=== PATIENT | female | born 1955 | race Hispanic/Latino ===

== ENCOUNTER → 2017-08-03 | Day surgery (SDC) | payer OTHER ==
[~2017-08-03] MED LIST: ALLERGY MEDICAT25 MG PO; ASPIR 8181 MG PO; CALCIUM ACETAT667 M1 PEG; ESTRADIOL1 MG PO; LIDOCAINE HCL 2% LOCAL INJ 5 ML SDV VIAL INJ ONE; MIDAZOLAM HCL 2 MG/2 ML VIAL ONE; NP THYROID60 MG PO; PRAVASTATIN SOD40 MG PO; PROPOFOL IV EMULSION 10 MG/ML 50 ML VIAL ONE; VITAMIN C1000 MG PO
--- NOTE | 2017-08-03 15:11 | Operative Report ---
DATE OF PROCEDURE: August 03, 2017 REFERRING PHYSICIAN: Dr. Sarina Levi PROCEDURES PERFORMED 1. Esophagogastroduodenoscopy with esophageal dilatation and biopsies. 2. Colonoscopy with polypectomy. INDICATIONS FOR EGD: Dysphagia to solids. INDICATIONS FOR COLONOSCOPY: Colorectal cancer screening. MEDICATION: Patient was done under MAC. Please see anesthesiologist's note. PROCEDURE: With the patient in the left lateral decubitus position, the flexible fiberoptic Olympus gastroscope was introduced into the esophagus under direct visualization without any difficulty. There was some patchy erythema noted in the distal esophagus. There was a small sliding hiatal hernia noted, and a mild stricture at the GE junction that was dilated to size 52-[place] Barrera. The scope was then advanced with ease into the stomach. Mucosa overlying the body appeared somewhat atrophic, and biopsies were obtained to rule out atrophic gastritis. Some minimal minute nodularity was noted in the distal body, and that was biopsied. The mucosa overlying the antrum revealed some patchy erythema and low-grade to moderate edema, and biopsies were obtained and sent to stain for H. pylori. The pylorus was of normal contour and shape. It was intubated with ease. The scope was advanced all the way to the 2nd portion of the duodenum. The scope was then withdrawn slowly. The mucosa overlying the proximal 2nd portion and the duodenal bulb appeared to be within normal limits. The scope was then withdrawn back into the stomach and retroflexed. The mucosa overlying the fundus and the cardia appeared to be within normal limits. The scope was then straightened out. It was subsequently withdrawn. Patient tolerated the procedure well. IMPRESSION 1. Distal esophagitis, mild. 2. Small sliding hiatal hernia. 3. Esophageal stricture at gastroesophageal junction dilated to size 52-[place] Barrera. 4. Rule out atrophic gastritis, body. 5. Minimal nodularity, distal body, biopsied. 6. Gastritis, antrum, biopsied. Sent to stain for Helicobacter pylori. PLAN: Follow up histology. Initiate Protonix 40 mg 1 p.o. q.a.m. a.c. Patient was then turned around. After adequate lubrication of the anal canal, a flexible fiberoptic Olympus colonoscope was inserted into the rectum with ease and advanced all the way to the cecum. The scope was then withdrawn slowly. Mucosa overlying the cecum, ascending colon, and transverse colon appeared to be within normal limits. One polyp was hot biopsied from the descending colon. Diverticular disease was noted to involve the distal descending and the sigmoid colon. The sigmoid colon was somewhat sharply angulated and suboptimally visualized. Two polyps were hot biopsied from the sigmoid and 1 polyp was hot biopsied from the rectum. The scope was then retroflexed into the distal rectum and small internal hemorrhoids were noted, none of which was actively bleeding. The scope was then straightened out. It was subsequently withdrawn. Patient tolerated the procedure well. IMPRESSION 1. Descending colon polyp, hot biopsied. 2. Diverticulosis. 3. Sigmoid colon polyps times 2, hot biopsied. 4. Rectal polyp, hot biopsied. 5. Internal hemorrhoids, none actively bleeding. PLAN: Follow up histology. Initiate high-fiber and low-fat diet. Initiate high-fiber supplement. Patient might benefit from a followup colonoscopy in 3 years. Job#: [id number] [place] cc:SARINA LEVI MD
== END | disposition home or self-care (01) ==
LOC: OR 09:18
PROVIDERS: ATTEND Internal Medicine Gastroenterology
DX: Z12.11 Encounter for screening for malignant neoplasm of colon (principal); K63.5 Polyp of colon; K62.1 Rectal polyp; K29.50 Unspecified chronic gastritis without bleeding; K22.2 Esophageal obstruction; K31.89 Other diseases of stomach and duodenum; K20.9 Esophagitis, unspecified; K44.9 Diaphragmatic hernia without obstruction or gangrene; K57.30 Diverticulosis of large intestine without perforation or abscess without bleeding; K64.8 Other hemorrhoids; E03.9 Hypothyroidism, unspecified; R00.1 Bradycardia, unspecified; R03.0 Elevated blood-pressure reading, without diagnosis of hypertension; F17.210 Nicotine dependence, cigarettes, uncomplicated; Z01.810 Encounter for preprocedural cardiovascular examination; Z79.82 Long term (current) use of aspirin; Z68.30 Body mass index [BMI] 30.0-30.9, adult
CPT/HCPCS: 43239; 43450; 45384; 93005; J2001; J2250

== ENCOUNTER → 2024-08-16 | Day surgery (SDC) | payer MEDICARE ==
[~2024-08-16] MED LIST changes: +ACETAMINOPHEN 1000 MG/100 ML 100 ML IV ONE; +ALENDRONATE SOD70 MG PO; +ARICEPT5 MG PO; +ATORVASTATIN CA20 MG PO; +AZO BLADDER CO300 MG; +B-123000 MCG PO; +CALCIUM 250 MG1 EACH; +CEPHALEXIN500 MG PO; +DEXAMETHASONE SOD PHOS INJ 4 MG/ML SDV ONE; +EPHEDRINE SULFATE INJ 50 MG/ML VIAL ONE; +EVISTA60 MG PO; +HYDROXYZINE HCL10 MG PO; +LEVOTHYROXINE50 MCG PO; +LOSARTAN POTASS25 MG PO; +MELOXICAM15 MG; -MIDAZOLAM HCL 2 MG/2 ML VIAL ONE; +MULTI-VITAMIN1 EACH PO; +ONDANSETRON HCL INJ 2MG/ML 2ML 2 MG/ML VIAL ONE; +PROGESTERONE200 MG; +PROPOFOL IV EMULSION 10 MG/ML 20 ML VIAL ONE; -PROPOFOL IV EMULSION 10 MG/ML 50 ML VIAL ONE; +SEVOFLURANE INHAL SOLN 250 ML PEN BTL ONE; +SODIUM BICARBO650 MG PO; +TOPIRAMATE50 MG; +TYLENOL PM EXS1 EACH; +VESICARE5 MG PO; +VITAMIN B2100 MG; +[UNRECOGNIZED DRUG - OTHER]
[2024-08-16] MEDS: CEFTRIAXONE 1 GM VIAL ONE (08:53)
[2024-08-16] MEDS: LACTATED RINGER'S 1,000 ML ONE (08:55)
[2024-08-16 10:04] VITALS: TEMP 98.6
[2024-08-16 10:50] VITALS: BP 128/67; PULSE 75; RESP 15; O2SAT 98
== END | disposition home or self-care (01) ==
LOC: OR 06:57
PROVIDERS: ATTEND Urology
DX: N20.1 Calculus of ureter (principal); Z46.6 Encounter for fitting and adjustment of urinary device; Z87.440 Personal history of urinary (tract) infections; R35.1 Nocturia; R39.14 Feeling of incomplete bladder emptying; N81.4 Uterovaginal prolapse, unspecified; N95.2 Postmenopausal atrophic vaginitis; R39.15 Urgency of urination; I10 Essential (primary) hypertension; E78.5 Hyperlipidemia, unspecified; E03.9 Hypothyroidism, unspecified; K59.00 Constipation, unspecified; F03.90 Unspecified dementia, unspecified severity, without behavioral disturbance, psychotic disturbance, mood disturbance, and anxiety; Z79.899 Other long term (current) drug therapy
CPT/HCPCS: 74420; 88300; C1769; J0696; J1100; J2003; J2405

== ENCOUNTER 2024-12-02 07:17 | Inpatient (IN) | payer MEDICARE ==
[~2024-12-02] VITALS: Ht 160 cm; Wt 61.0 kg
[2024-12-02] VITALS (8 sets, daily range): BP systolic 124–147; BP diastolic 66–76; PULSE 59–81; RESP 13–20; TEMP 97.7–99; O2SAT 96–100
[~2024-12-02 07:17] MED LIST changes: -ACETAMINOPHEN 1000 MG/100 ML 100 ML IV ONE; -DEXAMETHASONE SOD PHOS INJ 4 MG/ML SDV ONE; -EPHEDRINE SULFATE INJ 50 MG/ML VIAL ONE; -LIDOCAINE HCL 2% LOCAL INJ 5 ML SDV VIAL INJ ONE; -ONDANSETRON HCL INJ 2MG/ML 2ML 2 MG/ML VIAL ONE; -PROPOFOL IV EMULSION 10 MG/ML 20 ML VIAL ONE; -SEVOFLURANE INHAL SOLN 250 ML PEN BTL ONE
[2024-12-02 07:48] LABS: BASOPHILS % 0.4 % (0.0-1.0); EOSINOPHILS % 1.2 % (0.0-6.0); LYMPHOCYTES % 16.6 % (18.0-39.1); MONOCYTES % 6.8 % (4.4-11.3); NEUTROPHILS % 74.7 % (38.7-80.0); RED CELL DISTRIBUTION WIDTH 13.4 % (11.7-14.4)
[2024-12-02 07:52] LABS: INR 0.92
[2024-12-02] MEDS: Morphine 2mg Syringe 2 MG/ML SYR IV STA (07:57)
[2024-12-02] MEDS: SODIUM CHLORIDE 0.9% 1000ML 1,000 ML IV STA (07:57)
[2024-12-02] MEDS: ONDANSETRON HCL INJ 2MG/ML 2ML 2 MG/ML VIAL IV STA ×2 (07:57→12:37)
[2024-12-02 08:03] LABS: EST GLOMERULAR FILTRATION RATE 96.0 ML/MIN (>=60)
[2024-12-02] MEDS ORDERED: IOPAMIDOL 370 MG/ML 100 ML INFUS..BTL INJ ONE (08:22)
[2024-12-02 09:15] LABS: LEUKOCYTE ESTERASE ,URINE NEGATIVE (NEGATIVE); PROTEIN,URINE DIPSTICK NEGATIVE (NEGATIVE); URINE UROBILINOGEN 0.2 mg/dL (0.2 - 1)
[2024-12-02 09:28] LABS: EPITHELIAL CELLS,URINE FEW /LPF
[2024-12-02] MEDS: Morphine 4mg INJECTION 4 MG/ML INJ IV STA (09:45)
[2024-12-02] MEDS ORDERED: Morphine 4mg INJECTION 4 MG/ML INJ IV PRN (10:30)
[2024-12-02] MEDS ORDERED: ONDANSETRON HCL INJ 2MG/ML 2ML 2 MG/ML VIAL IV PRN ×2 (10:30→12:45)
[2024-12-02] MEDS: BENZOCAINE/TETRACAINE/BUTAMBEN AERO SPRAY 56 GM CAN TOP ONE (10:38)
[2024-12-02] MEDS: SODIUM CHLORIDE 0.9% 1000ML 1,000 ML IV SCH (10:38)
[2024-12-02] MEDS ORDERED: PROPOFOL IV EMULSION 10 MG/ML 20 ML VIAL ONE (12:41)
[2024-12-02] MEDS ORDERED: MIDAZOLAM HCL 2 MG/2 ML VIAL ONE (12:41)
[2024-12-02] MEDS ORDERED: FENTANYL CITRATE/PF 100MCG/2 ML INJ ONE (12:41)
[2024-12-02] MEDS ORDERED: LIDOCAINE HCL 2% LOCAL INJ 5 ML SDV VIAL INJ ONE (12:41)
[2024-12-02] MEDS ORDERED: ROCURONIUM BROMIDE 1 ML IV ONE (12:42)
[2024-12-02] MEDS ORDERED: POTASSIUM CHLORIDE 20 MEQ TAB CR PO PRN (12:45)
[2024-12-02] MEDS ORDERED: SIMETHICONE 80 MG CHEW PO PRN (12:45)
[2024-12-02] MEDS ORDERED: ALBUTEROL/IPRATROPIUM 3 ML NEB NEB PRN (12:45)
[2024-12-02] MEDS ORDERED: BENZONATATE 100 MG CAP PO PRN (12:45)
[2024-12-02] MEDS ORDERED: LIDOCAINE 4% PATCH TP PRN (12:45)
[2024-12-02] MEDS ORDERED: DEXTROSE 50% SYRINGE 50 ML IV PRN (12:45)
[2024-12-02] MEDS ORDERED: ACETAMINOPHEN 325 MG TAB PO PRN (12:45)
[2024-12-02] MEDS ORDERED: HYDRALAZINE HCL 20 MG/ML VIAL IV PRN (12:45)
[2024-12-02] MEDS ORDERED: DIPHENHYDRAMINE HCL 25 MG CAP PO PRN (12:45)
[2024-12-02] MEDS ORDERED: DOCUSATE SODIUM 100 MG CAP PO PRN (12:45)
[2024-12-02] MEDS ORDERED: SUCCINYLCHOLINE CHLORIDE 20 MG/ML 10ML VIAL ONE (12:46)
[2024-12-02] MEDS ORDERED: EPHEDRINE SULFATE INJ 50 MG/ML VIAL ONE (13:11)
[2024-12-02] MEDS ORDERED: D5NS/KCL 20MEQ 1,000 ML IV SCH (13:30)
[2024-12-02] MEDS ORDERED: SODIUM CHLORIDE 0.9% INJ 10 ML VIAL ONE (13:36)
[2024-12-02] MEDS ORDERED: ONDANSETRON HCL INJ 2MG/ML 2ML 2 MG/ML VIAL ONE (13:42)
[2024-12-02] MEDS ORDERED: DEXAMETHASONE SOD PHOS INJ 4 MG/ML SDV ONE (13:42)
[2024-12-02] MEDS ORDERED: SUGAMMADEX SODIUM 200 MG/2 ML VIAL IV ONE (13:52)
[2024-12-02] MEDS: ONDANSETRON HCL INJ 2MG/ML 2ML 2 MG/ML VIAL ONE (15:13)
[2024-12-02] MEDS: PROMETHAZINE HCL (IM) 25 MG/ML VIAL IM ONE (15:30)
[2024-12-02] MEDS ORDERED: SODIUM CHLORIDE 0.9% 1000ML 1,000 ML IV SCH (16:45)
[2024-12-02] MEDS ORDERED: ENOXAPARIN SOD INJ 40 MG/0.4 ML SYR SC SCH (17:00)
[2024-12-02] MEDS ORDERED: MEMANTINE 10 MG (17:04)
[2024-12-02] MEDS ORDERED: ESTRADIOL1 MG PO (17:04)
[2024-12-02] MEDS ORDERED: PAMELOR10 MG PO (17:04)
[2024-12-02] MEDS ORDERED: PROTONIX20 MG PO (17:04)
[2024-12-02] MEDS ORDERED: B-121000 MC1 (17:04)
[2024-12-02] MEDS: SODIUM CHLORIDE 0.9% 250ML IRRIG IR SCH (18:15)
[2024-12-02] MEDS: D5NS/KCL 20MEQ 1,000 ML IV SCH (18:16)
[2024-12-02] MEDS ORDERED: MELATONIN 5 MG TABLET PO PRN (21:00)
[2024-12-02] MEDS: HYDROMORPHONE 1MG/1ML INJ IV PRN (21:33)
[2024-12-02] MEDS ORDERED: SEVOFLURANE INHAL SOLN 250 ML PEN BTL ONE (22:39)
[2024-12-03] VITALS (9 sets, daily range): BP systolic 116–140; BP diastolic 53–94; PULSE 59–66; RESP 16–20; TEMP 97.7–98.9; O2SAT 93–98
[2024-12-03 05:44] LABS: BASOPHILS % 0.1 % (0.0-1.0); EOSINOPHILS % 0.0 % (0.0-6.0); LYMPHOCYTES % 3.8 % (18.0-39.1); MONOCYTES % 3.8 % (4.4-11.3); NEUTROPHILS % 92.1 % (38.7-80.0); RED CELL DISTRIBUTION WIDTH 13.4 % (11.7-14.4)
[2024-12-03 06:19] LABS: EST GLOMERULAR FILTRATION RATE 97.0 ML/MIN (>=60)
[2024-12-03 06:40] LABS: PHOSPHORUS 2.4 MG/DL (2.3-4.7)
[2024-12-03] MEDS ORDERED: PANTOPRAZOLE SOD 40 MG TABEC PO SCH (07:30)
[2024-12-03] MEDS: KETOROLAC TROMETHAMINE 30 MG/ML VIAL IM PRN (09:28)
[2024-12-04] VITALS (8 sets, daily range): BP systolic 115–136; BP diastolic 62–75; PULSE 57–69; RESP 17–20; TEMP 97.8–98.7; O2SAT 97–100
[2024-12-04 05:44] LABS: BASOPHILS % 0.1 % (0.0-1.0); EOSINOPHILS % 0.1 % (0.0-6.0); LYMPHOCYTES % 14.2 % (18.0-39.1); MONOCYTES % 6.6 % (4.4-11.3); NEUTROPHILS % 78.5 % (38.7-80.0); RED CELL DISTRIBUTION WIDTH 14.0 % (11.7-14.4)
[2024-12-04 06:16] LABS: EST GLOMERULAR FILTRATION RATE 100.0 ML/MIN (>=60)
[2024-12-04] MEDS: BISACODYL 10 MG SUPP PR ONE (14:49)
[2024-12-04] MEDS: POTASSIUM CHLORIDE 20MEQ/100ML 100 ML IV ONE (17:40)
[2024-12-04] MEDS: MELATONIN 5 MG TABLET PO PRN (22:07)
[2024-12-05 06:20] LABS: EST GLOMERULAR FILTRATION RATE 102.0 ML/MIN (>=60)
[2024-12-05] MEDS: ACETAMINOPHEN 325 MG TAB PO PRN (09:44)
[2024-12-05 12:44] VITALS: BP 143/72; PULSE 58; RESP 18; TEMP 98.3; O2SAT 96
[2024-12-05 16:18] VITALS: BP 115/55; PULSE 56; RESP 18; TEMP 98; O2SAT 96
[2024-12-05 18:55] VITALS: BP 129/58; PULSE 102; RESP 18; TEMP 97.4; O2SAT 96
[2024-12-05 20:00] VITALS: BP_SYST 115; BP_SYST 144; BP_DIAS 62; BP_DIAS 78; PULSE 58; PULSE 60; RESP 16; RESP 17; TEMP 97.3; TEMP 98.3; O2SAT 95; O2SAT 97
[2024-12-05] MEDS: BISACODYL 10 MG SUPP PR SCH (20:17)
[2024-12-05 21:00] VITALS: BP 144/78; PULSE 58; RESP 16; TEMP 97.3; O2SAT 97
[2024-12-06 01:46] VITALS: BP 124/60; PULSE 53; RESP 18; TEMP 98.1; O2SAT 100
[2024-12-06] MEDS: HYDROCODONE/APAP 5MG-325MG TAB PO PRN (04:40)
[2024-12-06 06:14] VITALS: BP 152/96; PULSE 58; RESP 18; TEMP 98.1; O2SAT 97
[2024-12-06 06:25] LABS: EST GLOMERULAR FILTRATION RATE 100 ML/MIN (>=60)
[2024-12-06 10:00] VITALS: BP 152/96; PULSE 58; RESP 18; TEMP 98.1; O2SAT 97
[2024-12-06] MEDS ORDERED: ONDANSETRON HCL INJ 2MG/ML 2ML 2 MG/ML VIAL IV PRN (12:15)
[2024-12-06 12:50] VITALS: BP 143/78; PULSE 57; RESP 18; TEMP 97.7; O2SAT 98
[2024-12-06 13:23] VITALS: BP 133/68; PULSE 50; RESP 18; TEMP 97.7; O2SAT 98
== END 2024-12-06 16:15 | disposition home or self-care (01) | DRG 331 ==
LOC: ER 07:26 → ERHOLD 10:29 → MED/SURG2 12:12
PROVIDERS: ADMIT Internal Medicine; ATTEND Internal Medicine
PROC: 0DN80ZZ Release Small Intestine, Open Approach (ICD-10-PCS; 2024-12-02)
PROC: 0D180Z8 Bypass Small Intestine to Small Intestine, Open Approach (ICD-10-PCS; principal; 2024-12-02 12:58)
DX: K56.50 Intestinal adhesions [bands], unspecified as to partial versus complete obstruction (principal); N20.0 Calculus of kidney; E03.9 Hypothyroidism, unspecified; E78.5 Hyperlipidemia, unspecified; I10 Essential (primary) hypertension; Z79.890 Hormone replacement therapy; Z90.49 Acquired absence of other specified parts of digestive tract; Z90.710 Acquired absence of both cervix and uterus; Z82.49 Family history of ischemic heart disease and other diseases of the circulatory system
CPT/HCPCS: 36415; 74018; 74177; 80048; 80053; 81001; 83690; 83735; 84100; 84484; 85014; 85018; 85025; 85610; 85730; 94799; 99284; J0330; J0694; J1100; J1171; J1885; J2003; J2250; J2270; J2405; J2470; J2543; J2550; J3480; J7030; Q9967